=== PATIENT | male | born 1970 | race Two or more races ===

== ENCOUNTER 2021-02-22 06:25 | Emergency (ER) | payer OTHER, SELFPAY ==
[~2021-02-22] VITALS: Ht 160 cm; Wt 80.0 kg
[2021-02-22 06:26] VITALS: BP 113/73
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
--- NOTE | 2021-02-22 06:51 | NUR ---
REPORT AND CARE TO ROMARIO KOTHARI.
[2021-02-22] MEDS ORDERED: HYDROcodone/APAP 5/325 TABLET PO ONE (07:00)
[2021-02-22] MEDS ORDERED: PLEASE ENTER ALLERGIES MC SCH (07:00)
--- NOTE | 2021-02-22 07:01 | NUR ---
PATIENT TO IMAGING.
[2021-02-22] MEDS ORDERED: HYDROcodone/APAP 5/325 TABLET ONE (07:24)
--- NOTE | 2021-02-22 07:25 | NUR ---
PATIENT BACK IN ROOM, MEDICATED PER eMAR, NADN, VSS, CALL LIGHT WITHIN REACH.
--- NOTE | 2021-02-22 07:48 | NUR ---
Patient given discharge instructions and prescriptions and they have confirmed that they understand the instructions. Patient ambulatory with steady gait. NAD, all questions answered appropriately, denies additional needs at this time. No personal belongings left in room after discharge.
== END 2021-02-22 07:49 | disposition home or self-care (01) ==
LOC: ED 07:43
DX: S20.212A Contusion of left front wall of thorax, initial encounter (principal); M54.5 Low back pain; V49.49XA Driver injured in collision with other motor vehicles in traffic accident, initial encounter; Y93.89 Activity, other specified; Y92.89 Other specified places as the place of occurrence of the external cause; Y99.8 Other external cause status
CPT/HCPCS: 99283